=== PATIENT | male | born 1990 | race Caucasian/White ===

== ENCOUNTER 2017-10-21 15:52 | Emergency (ER) | payer SELFPAY ==
[2017-10-21] MEDS ORDERED: Sodium Chloride 0.9% 10 ML Syringe FLUSH PRN (15:58)
[2017-10-21] MEDS ORDERED: Sodium Chloride 0.9% 2.5 ML Syringe FLUSH PRN (15:58)
[2017-10-21] MEDS ORDERED: Sodium Chloride 0.9% 1,000 ML IV ONE ×2 (15:59→17:14)
[2017-10-21] MEDS ORDERED: HYDROmorphone 2 MG/ML SDV IVPUSH ONE ×2 (16:00→16:30)
[2017-10-21] MEDS ORDERED: Ondansetron 4 MG/2 ML SDV IVPUSH ONE (16:00)
[2017-10-21] MEDS ORDERED: HYDROmorphone 1 MG/ML Syringe ONE ×2 (16:10→16:30)
[2017-10-21] MEDS ORDERED: Diazepam 5 MG/ML 10 ML Vial MDV IV ONE (16:30)
[2017-10-21] MEDS ORDERED: Diazepam 5 MG/ML 10 ML Vial MDV ONE (16:30)
[2017-10-21 16:47] LABS: CHLORIDE,CL 102 mmol/L (98-107); SODIUM,NA 138 mmol/L (136-148)
--- NOTE | 2017-10-21 17:13 | EDM.PDOC ---
ED HPI GENERAL MEDICAL PROBLEM - General Chief Complaint: Lower Extremity Injury/Pain Stated Complaint: AMB Time Seen by Provider: 10/21/17 15:55 Source of Information: Reports: EMS History Limitations: Reports: No Limitations - History of Present Illness INITIAL COMMENTS - FREE TEXT/NARRATIVE: History of present illness: []Patient was unloading 2 stacked trailers when one slid and crushed his right thigh between it and another trailer. He came in by a voluntary ambulance crew from [place] who used nitrous and morphine for pain control. Patient arrived awake and alert denied any other injuries or pain. Review of systems: As per history of present illness and below otherwise all systems reviewed and negative. Past medical history: As per history of present illness and as reviewed below otherwise noncontributory. Surgical history: As per history of present illness and as reviewed below otherwise noncontributory. Social history: No reported history of drug or alcohol abuse. Family history: As per history of present illness and as reviewed below otherwise noncontributory. Physical exam: General: Well developed, well nourished in NAD HEENT: Atraumatic, normocephalic, pupils reactive, negative for conjunctival pallor or scleral icterus, mucous membranes moist, throat clear, neck supple, nontender, trachea midline. Lungs: Clear to auscultation, breath sounds equal bilaterally, chest nontender. Heart: S1S2, regular, negative for clicks, rubs, or JVD. Abdomen: Soft, nondistended, nontender. Negative for masses or hepatosplenomegaly. Negative for costovertebral tenderness. Pelvis: Stable nontender. Genitourinary: Deferred. Rectal: Deferred. Extremities: Right lower extremity in a traction splint he has tenderness to palpation on his upper thigh he has no tenderness in his pelvis to pelvic rock, negative for cords or calf pain. Moves toes and sensation intact distal pulses palpable with brisk capillary refill. Neurovascular unremarkable. Neuro: Awake, alert, oriented. Cranial nerves II through XII unremarkable. Cerebellum unremarkable. Motor and sensory unremarkable throughout. Exam nonfocal. Diagnostics: []X-ray shows comminuted femur fracture of the proximal third shaft, CBC elevated white count with a shift 17,000, CPK 202, chemistries normal Therapeutics: []Dilaudid, Valium, IV hydration Impression: []Closed comminuted femur fracture Plan: []Chest with Dr. Degroot from Ortho at [facility] who accepts the patient to the emergency room. Dr. Rayo in the ER is also aware of the patient and accepts. Definitive disposition and diagnosis as appropriate pending reevaluation and review of above. Right Leg Pain Score (Numeric/FACES): 10 - Related Data Allergies Allergy/AdvReac Type Severity Reaction Status Date / Time No Known Allergies Allergy Verified 10/21/17 16:07 Home Meds: Home Meds . [No Known Home Meds] 10/21/17 [History] Past Medical History - Past Health History Medical/Surgical History: Denies Medical/Surgical History Social & Family History - Family History Family Medical History: Noncontributory - Tobacco Use Smoking Status *Q: Current Some Day Smoker Years of Tobacco use: 7 Packs/Tins Daily: 0.5 - Caffeine Use Caffeine Use: Reports: Coffee, Energy Drinks, Soda, Tea Other Caffeine Use: daily - Recreational Drug Use Recreational Drug Use: No Review of Systems - Review of Systems Review Of Systems: See Below (See history of present illness) ED EXAM, GENERAL - Physical Exam Exam: See Below (See history of present illness) Course - Vital Signs Last Recorded V/S: Last Vital Signs Temp 97.1 F 10/21/17 15:59 Pulse 90 10/21/17 15:59 Resp 22 H 10/21/17 15:59 BP 150/95 H 10/21/17 15:59 Pulse Ox 97 10/21/17 15:59 - Orders/Labs/Meds Orders: Active Orders 24 hr Category Date Time Status Femur Min 2V Rt [CR] Stat Exams 10/21/17 15:58 Taken Pelvis 1V or 2V [CR] Stat Exams 10/21/17 15:59 Taken Sodium Chloride 0.9% [Saline Flush] Med 10/21/17 15:58 Active 10 ml FLUSH ASDIRECTED PRN Sodium Chloride 0.9% [Saline Flush] Med 10/21/17 15:58 Active 2.5 ml FLUSH ASDIRECTED PRN Saline Lock Insert [OM.PC] Stat Oth 10/21/17 15:58 Ordered Medication Orders Sodium Chloride (Saline Flush) 10 ml FLUSH ASDIRECTED PRN PRN Reason: Keep Vein Open Sodium Chloride (Saline Flush) 2.5 ml FLUSH ASDIRECTED PRN PRN Reason: Keep Vein Open Labs: Laboratory Tests 10/21/17 10/21/17 Range/Units 16:04 16:04 WBC 17.23 H (4.0-11.0) K/uL RBC 5.18 (4.50-5.90) M/uL Hgb 15.7 (13.0-17.0) g/dL Hct 44.1 (38.0-50.0) % MCV 85.1 (80.0-98.0) fL MCH 30.3 (27.0-32.0) pg MCHC 35.6 (31.0-37.0) g/dL RDW Std Deviation 39.4 (28.0-62.0) fl RDW Coeff of Jessica 13 (11.0-15.0) % Plt Count 233 (150-400) K/uL MPV 9.60 (7.40-12.00) fL Neut % (Auto) 80.8 H (48.0-80.0) % Lymph % (Auto) 11.0 L (16.0-40.0) % [place] % (Auto) 7.0 (0.0-15.0) % Eos % (Auto) 1.1 (0.0-7.0) % Baso % (Auto) 0.1 (0.0-1.5) % Neut # (Auto) 13.9 H (1.4-5.7) K/uL Lymph # (Auto) 1.9 (0.6-2.4) K/uL [place] # (Auto) 1.2 H (0.0-0.8) K/uL Eos # (Auto) 0.2 (0.0-0.7) K/uL Baso # (Auto) 0.0 (0.0-0.1) K/uL Nucleated RBC % 0.0 /100WBC Nucleated RBCs # 0 K/uL Sodium 138 (136-148) mmol/L Potassium 3.7 (3.5-5.1) mmol/L Chloride 102 (98-107) mmol/L Carbon Dioxide 27.2 (21.0-32.0) mmol/L BUN 12 (7.0-18.0) mg/dL Creatinine 1.2 (0.8-1.3) mg/dL Est Cr Clr Drug Dosing 93.78 mL/min Estimated GFR (MDRD) > 60.0 ml/min Glucose 123 H (74-106) mg/dL Calcium 9.2 (8.5-10.1) mg/dL Total Bilirubin 0.4 (0.2-1.0) mg/dL AST 25 (15-37) IU/L ALT 49 (14-63) IU/L Alkaline Phosphatase 40 L (46-116) U/L Creatine Kinase 202 (26-308) U/L Total Protein 7.4 (6.4-8.2) g/dL Albumin 4.0 (3.4-5.0) g/dL Globulin 3.4 (2.0-3.5) g/dL Albumin/Globulin Ratio 1.2 L (1.3-2.8) Meds: Medications Generic Name Dose Route Start Last Admin Trade Name Freq PRN Reason Stop Dose Admin Sodium Chloride 10 ml 10/21/17 15:58 Saline Flush FLUSH ASDIRECTED PRN Keep Vein Open Sodium Chloride 2.5 ml 10/21/17 15:58 Saline Flush FLUSH ASDIRECTED PRN Keep Vein Open Discontinued Medications Generic Name Dose Route Start Last Admin Trade Name Freq PRN Reason Stop Dose Admin Diazepam 5 mg 10/21/17 16:30 10/21/17 16:33 Valium IV 10/21/17 16:31 5 mg ONETIME ONE Administration Diazepam Confirm 10/21/17 16:30 10/21/17 16:37 Valium Administered 10/21/17 16:31 Not Given Dose 50 mg .ROUTE .STK-MED ONE Hydromorphone HCl 1 mg 10/21/17 16:00 10/21/17 16:20 Dilaudid IVPUSH 10/21/17 16:01 Not Given ONETIME ONE Hydromorphone HCl Confirm 10/21/17 16:10 10/21/17 16:17 Dilaudid Administered 10/21/17 16:11 1 mg Dose Administration 1 mg .ROUTE .STK-MED ONE Hydromorphone HCl 1 mg 10/21/17 16:30 10/21/17 16:35 Dilaudid IVPUSH 10/21/17 16:31 Not Given ONETIME ONE Hydromorphone HCl Confirm 10/21/17 16:30 10/21/17 16:34 Dilaudid Administered 10/21/17 16:31 1 mg Dose Administration 1 mg .ROUTE .STK-MED ONE Sodium Chloride 1,000 mls @ 999 mls/hr 10/21/17 15:59 10/21/17 16:11 Normal Saline IV 10/21/17 16:59 999 mls/hr .Bolus ONE Administration Ondansetron HCl 4 mg 10/21/17 16:00 10/21/17 16:14 Zofran IVPUSH 10/21/17 16:01 4 mg ONETIME ONE Administration Departure - Departure Time of Disposition: 17:12 Disposition: DC/Tfer to Acute Hospital 02 Condition: Good Clinical Impression: Closed femur fracture Qualifiers: Encounter type: initial encounter Femur location: shaft Fracture morphology: comminuted Fracture alignment: displaced Laterality: right Qualified Code(s): S72.351A - Displaced comminuted fracture of shaft of right femur, initial encounter for closed fracture - Discharge Information Referrals: PCP,None [Primary Care Provider] - - My Orders Last 24 Hours: My Active Orders 10/21/17 15:58 Femur Min 2V Rt [CR] Stat Sodium Chloride 0.9% [Saline Flush] 10 ml FLUSH ASDIRECTED PRN Sodium Chloride 0.9% [Saline Flush] 2.5 ml FLUSH ASDIRECTED PRN Saline Lock Insert [OM.PC] Stat 10/21/17 15:59 Pelvis 1V or 2V [CR] Stat - Assessment/Plan Last 24 Hours: My Active Orders 10/21/17 15:58 Femur Min 2V Rt [CR] Stat Sodium Chloride 0.9% [Saline Flush] 10 ml FLUSH ASDIRECTED PRN Sodium Chloride 0.9% [Saline Flush] 2.5 ml FLUSH ASDIRECTED PRN Saline Lock Insert [OM.PC] Stat 10/21/17 15:59 Pelvis 1V or 2V [CR] Stat
--- NOTE | 2017-10-23 16:50 | CR ---
EXAM DATE: 10/21/17 PATIENT'S AGE: 27 Patient: WAQAS COSBY Facility: [place], [place] Site . Site : 1990 Study: XRay Pelvis [id number] 5:02:31 PM Ordering Physician: Rohan Godoy Final Report: HISTORY: Crush injury. COMPARISON: None. FINDINGS: Single view of the pelvis. There is a comminuted fracture of the proximal femoral diaphysis. Dictated by Pao Varner MD @ Oct 21 2017 5:22PM (Electronic Signature) Report Signed by Proxy. SCOTTIE
--- NOTE | 2017-10-23 16:51 | CR ---
EXAM DATE: 10/21/17 PATIENT'S AGE: 27 Patient: WAQAS COSBY Facility: [place], [place] Site . Site : 1990 Study: XRay Extremity Right [id number] 5:05:53 PM Ordering Physician: Rohan Godoy Final Report: HISTORY: Crush injury. COMPARISON: Pelvis 10/21/2017. FINDINGS: Comminuted fracture of the proximal femoral diaphysis with mild angulation. Dictated by Pao Varner MD @ Oct 21 2017 5:24PM (Electronic Signature) Report Signed by Proxy. SCOTTIE
== END 2017-10-21 17:51 ==
LOC: MW.ED 15:52
DX: S72.351A Displaced comminuted fracture of shaft of right femur, initial encounter for closed fracture (principal); F17.210 Nicotine dependence, cigarettes, uncomplicated; W23.1XXA Caught, crushed, jammed, or pinched between stationary objects, initial encounter
CPT/HCPCS: 36415; 72170; 73552; 80053; 82550; 85025; 96361; 96374; 96375; 99285; A9270; J1170; J2405; J7040